=== PATIENT | female | born 1995 | race Caucasian/White ===

== ENCOUNTER 2017-07-07 12:34 | Emergency (ER) | payer SELFPAY ==
[2017-07-07 12:36] VITALS: BP 137/99; PULSE 112; RESP 16; TEMP 36.3; O2SAT 100; BMI 21.9
--- NOTE | 2017-07-07 12:59 | ED.RN ---
RN entered room to start IV as ordered and pt began crying and verbalizing how terrified she is of needles and that it was going to make her have a panic attack. MD Pruett notified.
[2017-07-07] MEDS: Dicyclomine 10 MG Capsule 20 MG PO (13:04)
[2017-07-07 13:09] LABS: Bacteria 0 SEEN /hpf (None Seen); Mucous, Urine 0 SEEN /hpf (<or=2+); Red Blood Cells-Urine 0 SEEN /hpf (0-5)
[2017-07-07 13:17] LABS: Color, Urine Yellow (Yellow); Glucose, Dipstick Normal (Normal); Ketone-Dipstick Negative (Negative); Leukocyte Esterase-Dipstick 25 /ul (Negative); Nitrite-Dipstick Negative (Negative); Occult Blood-Urine Negative /ul (Negative); Protein-Dipstick Negative (Negative); Urine Bilirubin Dipstick Negative (Negative); Urine Clarity Clear (Clear); Urine Urobilinogen Normal (Normal)
[2017-07-07 13:22] LABS: Internal QC Validated? YES +Cl - CLEAR BKGD; Pregnancy, Urine Positive Negative
[2017-07-07 13:27] LABS: Squamous Epithelial Cells - UA 0-5 SEEN /hpf (5-10); White Blood Cells 0-5 SEEN /hpf (0-5)
--- NOTE | 2017-07-07 13:28 | US_ITS ---
STUDY: SECOND AND THIRD TRIMESTER OBSTETRICAL ULTRASOUND - LIMITED REASON FOR EXAM: Female, 21 years old. Right lower quadrant pain. Positive test. LMP: Unknown. PRIOR ULTRASOUND: None. TECHNIQUE: Transabdominal and transvaginal ultrasound evaluation was performed. FINDINGS: There is a single intrauterine fetus. The fetus is in a breech presentation. There is demonstrated cardiac activity with a heart rate of 147 bpm. There is a normal amniotic fluid volume. The amniotic fluid index (SHAYY) is within normal limits. The placenta is anterior in location and is not low lying. There are Grade 0 placental changes. The cervix measures 3.5 cm in length. BIOMETRY: BPD: 3.02 cm: 15 weeks, 4 days HC: 11.07 cm: 15 weeks, 3 days AC: 9.67 cm: 15 weeks, 6 days FL: 1.84 cm: 15 weeks, 4 days age by current US: 15 weeks, 5 days. LYNNE by current US: December 24, 2017. Estimated weight: 129 grams, +/- 19 grams Gender: Indeterminant US/OB Limited With Biometrics IMPRESSION: Single live intrauterine gestation with a mean gestational age of 15 weeks and 5 days. Electronically Signed: Enoch Gregg MD at 14:56 EDT Tel [phone], Service support ,
[2017-07-07 13:49] LABS: Absolute Lymphocyte Count 2.15 X10^3/ul (0.83-4.51); Basophil# 0.05 X10^3/uL; Basophil% 0.6 % (0-1); Eosinophil# 0.15 X10^3/uL; Eosinophils% 1.7 % (0-5); Hematocrit 33.4 % (37-47); Hemoglobin 11.7 g/dl (12.0-15.0); Lymphocyte # 2.15 X10^3/ul (4.0); Lymphocyte % 24.3 % (19-41); Mean Corpuscular Hgb 31.2 pg (27.0-32.0); Mean Corpuscular Volume 89.1 fL (81-99); Mean Platelet Vol. 9.1 fl (6.2-12.0); Monocyte# 0.45 X10^3/uL; Monocyte% 5.1 % (0-10); Neutrophil # 6.03 X10^3/uL (2.7-7.7); POSITIVE COUNT NO; POSITIVE DIFFERENTIAL NO; POSITIVE MORPHOLOGY NO; Platelet Count 322 K/mm3 (150-450); RBC Distribution Width CV 11.8 % (11.6-14.6); RBC Distribution Width SD 37.5 fl (35.1-43.9); Red Blood Count 3.75 M/mm3 (4.2-5.4); White Blood Count 8.9 K/mm3 (4.4-11.0)
[2017-07-07 14:03] LABS: Anion Gap 8 (5-15); BUN 4 mg/dL (7-18); BUN/Creat Ratio 9.1 RATIO (10-20); Calcium,Total 8.8 mg/dL (8.5-10.1); Chloride 105 mmol/L (98-107); Creatinine, Serum 0.44 mg/dL (0.55-1.02); EST Glomerular Filtration Rate 190 mL/min (>60); Est Glom Filt Rate - Afr Amer 230 mL/min (>60); Estimated Creatinine Clearance 159.96 ml/min; Glucose 76 mg/dL (74-106); Potassium 3.3 mmol/L (3.5-5.1); Sodium Level 137 mmol/L (136-145)
[2017-07-07 14:23] LABS: hCG Titer Quant., Serum 7308 mIU/mL (<9 non-preg)
[2017-07-07 15:09] VITALS: BP 152/90; PULSE 98; RESP 18; O2SAT 100
--- NOTE | 2017-07-07 15:43 | ED.VISSUMM ---
- ER Visit Summary Date of Service: 07/07/17 Chief Complaint: Right sided abdominal pain History of Present Illness: The patient is a 21 F who presents with right-sided abdominal pain patient is a poor informant. She is vague. Last menses may have been 6 months ago. She was on Depakote injections. She is sexually active. She does have history of PID. She denies any vaginal bleeding or vaginal discharge. She denies dysuria, frequency, urgency or hematuria. She denies fever, chills or night sweats. She denies any cardiorespiratory symptoms. Her behavior is not appropriate. She states she is anxious she sees needles or has blood drawn. She commented to the nurse that she smokes methamphetamine. Initially she denied drug use. She was re-question and admits to smoking methamphetamine in the past not recently. She does admit to cannabis use and she does admit to tobacco use. She denies alcohol use. Of note, when I initially entered the room and asked her why she presented she replied look at me would you like to be like me . I informed the patient I am not sure why she responded that way. Physical Examination: Vital signs remarkable for heart rate 112 and blood pressure 137 or 99. She does appear anxious. She has numerous body piercings. Head is atraumatic normocephalic. Pupils are equal round reactive. Extraocular muscles are intact. TMs are pearly white with landmarks noted. Nares patent with no drainage. Posterior pharynx without erythema or exudate. Uvula is midline. There is no dysphonia or dysphasia. Trachea is midline. There is no stridor with auscultation of the neck. Heart is rapid and regular without murmur, gallop or rub. S1 and S2 are normal. Lungs are clear to auscultation with good movement of air bilaterally. Abdomen is soft and nontender. There is no guarding or peritoneal findings. There is no palpable pulsatile mass. There is no abdominal bruit. Samaniego sign is negative. Negative Rovsing sign. There is no evidence of inguinal or umbilical hernia. Patient complained of severe pain when she was not distracted. Initially she had no percussion tenderness. She now has significant percussion tenderness. Neuro exam is nonfocal. Test Results: Urine test was positive. Patient was told she has to allow the nurse to put in a Hep-Lock in obtain blood for the orders that I placed. She also was told that her is positive and that a transvaginal ultrasound is indicated. H&H 11.7 and 33.4. Electrode panel is normal. UA is unremarkable. Serum quantitative hCG is 7308. Transvaginal ultrasound reveals a single live IUP 15 weeks 5 days with no pelvic pathology noted. Emergency Department Course and Treatment: To evaluate patient's abdominal pain with history of methamphetamine will obtain test and appropriate blood work. Since test returned positive a serum quantitative hCG was obtained and transvaginal ultrasound. Because she is a urine tox was sent because of concern that her demonstrated abnormal behavior since returning from the [facility] suite is unexplainable other than illicit drug use. Treatment Plan: Referral to [facility] for OB follow-up Disposition: Discharged home with appropriate home-going instructions Impression: 1. Second trimester newly diagnosed 2. Abdominal pain unknown etiology 3. Reported history of illicit drug use review This note was generated with [id number] dictation software. It may contain incorrect words, spelling, and punctuation that were not noted in review of the chart prior to signing ED Disposition - Plan for ED Patient: Disposition: Home or Assisted Living Chief Complaint: Abd Pain Instructions: : Your Second Trimester Changes, ED Abdominal Pain Unkn Cause Referrals: Care Physician,No Primary [Primary Care Provider] - Suly Ogden MD [STAFF PHYSICIAN] - 5-7 Days
[2017-07-07 18:59] LABS: Amphetamine Urine VISTA POSITIVE (<1000 ng/mL); Barbiturate Urine VISTA NEGATIVE (< 200 ng/mL); Benzodiazepine Urine VISTA NEGATIVE (< 200 ng/mL); Cocaine Urine VISTA NEGATIVE (< 300 ng/mL); Ecstacy Urine VISTA NEGATIVE (< 500 ng/mL); Methadone Urine VISTA NEGATIVE (< 300 ng/mL); PCP Urine VISTA NEGATIVE (< 25 ng/mL); THC Urine VISTA POSITIVE (< 50 ng/mL); Vista UDS pH Range 6
== END 2017-07-07 16:06 | disposition home or self-care (01) ==
PROVIDERS: Emergency Provider Emergency Medicine
DX: R10.9 Unspecified abdominal pain (principal); Z33.1 Pregnant state, incidental; Z3A.15 15 weeks gestation of pregnancy; Z87.898 Personal history of other specified conditions; F41.9 Anxiety disorder, unspecified; R11.0 Nausea; Z87.42 Personal history of other diseases of the female genital tract; F12.90 Cannabis use, unspecified, uncomplicated; Z72.0 Tobacco use
CPT/HCPCS: 76816; 80048; 80307; 81001; 81025; 84702; 85025; 99283; A4216